=== PATIENT | female | born 1975 | race Caucasian/White ===

== ENCOUNTER 2016-05-19 15:29 | Inpatient (IN) | payer MEDICAID ==
[~2016-05-19] VITALS: Ht 152.4 cm; Wt 85.6 kg
[~2016-05-19 15:29] MED LIST: AMBIEN10 MG PO; BACLOFEN10 MG PO; CHRONULAC30 ML PO; COLACE100 MG PO; COUMADIN2.5 MG PO; CYCLOBENZAPRINE10 MG PO; DURAGESIC1 PATCH .7 TRANSDERM; FLUTICASONE PRO16 GM NASAL; GLUCOPHAGE500 MG PO; HYDROCODON-ACE1 EAC9 PO; LASIX20 MG PO; LEXAPRO10 MG PO; LEXAPRO20 MG; LEXAPRO20 MG PO; LOMOTIL TABLET1 TAB PO; MERREM 1 GM/NS 11 G1 IVPB; METHADOSE40 MG PO; NEURONTIN800 MG PO; OXYCONTIN10 MG PO; PATANOL 0.1 % OP5 ML EACH EYE; PEPCID20 MG PO; POTASSIUM20 MEQ/11 PO; PROVENTIL/2.5 MG/3 M INH; PROVENTIL/2.5 MG/3 M NEB; RISPERDAL1 MG PO; TOBI 300 M300 MG/5 M INH; VALIUM10 MG PO; XANAX XR3 MG PO; XANAX2 MG PO; ZYVOX600 MG PO
[2016-05-19 18:33] LABS: BASOPHILS 0.2 % (0.0-2.0); EOSINOPHILS 1.6 % (0-7); HEMATOCRIT 30.6 % (36.0-48.0); IMMATURE GRANULOCYTES 0.2 % (0-5); LYMPHOCYTES 30.5 % (15-50); MCH 23.1 pg (26.0-34.0); MCHC 29.4 g/dL (31.0-37.0); MCV 78.5 fL (80.0-100.0); MEAN PLATELET VOLUME 9.2 fL (7.4-10.4); MONOCYTES 9.6 % (2-11); NEUTROPHILS 57.9 % (40-80); RDW 17.5 % (11.5-14.5); WBC 5.7 10x3/uL (4.8-10.8)
[2016-05-19 18:50] LABS: ALBUMIN 3.2 g/dL (3.4-5.0); ALKALINE PHOSPHATASE 108 U/L (46-116); ALT (SGPT) 30 U/L (10-68); CALC OSMOLALITY 281 mosm/kg (275-300); CALCIUM 8.5 mg/dL (8.5-10.1); CARBON DIOXIDE 34.7 mmol/L (21.0-32.0); CHLORIDE - SERUM 101 mmol/L (98-107); CREATININE - SERUM 0.5 mg/dL (0.6-1.3); GLUCOSE 163 mg/dL (74-106); POTASSIUM - SERUM 3.7 mmol/L (3.5-5.1); PROTEIN - SERUM 8.4 g/dL (6.4-8.2); SODIUM 140 mmol/L (136-145); UREA NITROGEN 10 mg/dL (7-18); eGFR NON AFRICAN AMERICAN > 90 mL/min (90-120)
[2016-05-19 18:58] LABS: PLATELET COUNT 117 10x3/uL (130-400)
[2016-05-19 20:45] VITALS: BP 105/55
--- NOTE | 2016-05-19 20:47 | NUR ---
RECIEVED PT FROM ER VIA STRETCHER. MOTHER AT BEDSIDE. SEE ADMIT ASSESSMENT. PT ON HOME VENT, CHANGED TO OUR VENT. TRACH C-D-I. LT HAND SL, SITE WITHOUT REDNESS OR EDEMA. SR ON THE MONITOR. PT IS QUAD. DECLINES NEED FOR QUAD CALL LIGHT. COMPLAINING OF LT LEG PAIN.
[2016-05-19 20:51] VITALS: BP 105/55; Ht 152.4 cm; Wt 85.6 kg
[2016-05-19 21:00] VITALS: BP 110/62
--- NOTE | 2016-05-19 21:09 | NUR ---
MORPHINE 2MG IV GIVEN PER ORDERS. WILL CONT TO MONITOR.
[2016-05-19] MEDS ORDERED: MYCOSTATIN CREA15 GM TOPICAL (21:28)
[2016-05-19] MEDS ORDERED: RETIN-A45 GM TP (21:29)
[2016-05-19 21:30] VITALS: BP 111/62
[2016-05-19] MEDS ORDERED: ACIDOPHILUS LAC1 CAP PO (21:31)
[2016-05-19] MEDS ORDERED: FLUTICASONE PRO16 GM NASAL (21:31)
[2016-05-19] MEDS ORDERED: PROPAFENONE HC150 MG PO ×2 (21:33→23:14)
[2016-05-19] MEDS ORDERED: STOOL SOFTENER250 MG PO (21:34)
[2016-05-19] MEDS ORDERED: XANAX2 MG PO (21:37)
[2016-05-19] MEDS ORDERED: MIRALAX17 GM PO (21:38)
[2016-05-19] MEDS ORDERED: AMBIEN10 MG PO ×2 (21:39→23:09)
[2016-05-19] MEDS ORDERED: ACETAMINOPHEN325 MG PO (21:39)
[2016-05-19] MEDS ORDERED: ADVIL200 MG PO (21:43)
[2016-05-19 22:00] VITALS: BP 118/67
[2016-05-19 23:00] VITALS: BP 125/66
[2016-05-19] MEDS ORDERED: BACLOFEN20 M1 PO (23:10)
[2016-05-19] MEDS ORDERED: NEURONTIN800 MG PO (23:12)
[2016-05-19] MEDS ORDERED: NEURONTIN800 MG (23:12)
[2016-05-19] MEDS ORDERED: RISPERDAL1 MG PO (23:13)
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
[2016-05-20] VITALS (12 sets, daily range): BP systolic 104–136; BP diastolic 52–70
--- NOTE | 2016-05-20 | NUR ---
TALKED WITH PT AND MOTHER REGARDING WISHES TO GO HOME. EXPLAINED THE NEED FOR THEM TO STAY AND GET HER LEG FIXED TO NOT PROLONG FURTHER ISSUES WITH IT. BOTH VERBALIZED UNDERSTANDING. WILL CONT TO MONITOR.
--- NOTE | 2016-05-20 00:30 | NUR ---
COMPLAINING OF LT LEG PAIN. MORPHINE 2MG IV GIVEN PER ORDERS. MOTHER AT BEDSIDE.
--- NOTE | 2016-05-20 03:45 | NUR ---
WATCHING TV. DENIES ANY NEEDS AT THIS TIME. MOTHER AT BEDSIDE
[2016-05-20 04:38] LABS: BASOPHILS 0 % (0.0-2.0); EOSINOPHILS 1.6 % (0-7); HEMATOCRIT 32.2 % (36.0-48.0); HEMOGLOBIN 9.3 g/dL (12-16); IMMATURE GRANULOCYTES 0.2 % (0-5); MCH 22.4 pg (26.0-34.0); MCHC 28.9 g/dL (31.0-37.0); MCV 77.6 fL (80.0-100.0); MEAN PLATELET VOLUME 9.4 fL (7.4-10.4); MONOCYTES 8.4 % (2-11); NEUTROPHILS 51.8 % (40-80); PLATELET COUNT 138 10x3/uL (130-400); RBC 4.15 10x6/uL (4.00-5.40); RDW 17.1 % (11.5-14.5); WBC 5.1 10x3/uL (4.8-10.8)
[2016-05-20 04:44] LABS: CALC OSMOLALITY 271 mosm/kg (275-300); CALCIUM 8.6 mg/dL (8.5-10.1); CARBON DIOXIDE 33.2 mmol/L (21.0-32.0); CHLORIDE - SERUM 99 mmol/L (98-107); CREATININE - SERUM 0.4 mg/dL (0.6-1.3); POTASSIUM - SERUM 4.1 mmol/L (3.5-5.1); SODIUM 137 mmol/L (136-145); UREA NITROGEN 8 mg/dL (7-18); eGFR NON AFRICAN AMERICAN > 90 mL/min (90-120)
[2016-05-20 04:46] LABS: GLUCOSE 92 mg/dL (74-106)
--- NOTE | 2016-05-20 07:00 | NUR ---
Received report and assumed care of patient. Pt c/o pain in R hip. spoken to adriana Jernigan RN. He will be in to see patient today. Pt does not want any surgical interventions. Patients mother at bedside. Pt requests to be repositioned. Vent per trach. Ho cath from home in place, pt denies stat lock placement. See shift assessment flowsheet for all findings.
--- NOTE | 2016-05-20 07:50 | NUR ---
Morphine given per EMAR for pain of R hip. PT denies any additional needs.
--- NOTE | 2016-05-20 08:08 | NUR ---
Patient finished with breakfast, cuff reinflated per RT. Pts mother at bedside.
--- NOTE | 2016-05-20 08:33 | NUR ---
Is the patient Alert and Oriented? Yes 0 * How many steps to enter\exit or inside your home? RAMP 0 * PCP DR. NEWELL 0 * Pharmacy [facility] IN [place], [place] 0 * Preadmission Environment Home with Family 0 * ADLs Total Dependent 0 * Equipment Hospital Bed Neelam Lift Oxygen Trach Care Supplies Ventilator Wheelchair 0 * Other Equipment RAMIN HAS O2 CONCENTRATOR SUPPLIED BY [employer] SUPPLY 0 * List name and contact numbers for known caregivers / representatives who currently or will assist patient after discharge: MOTHER: LUIS MANUEL LANTIGUA [phone] 0 * Community resources currently utilized Home Health Other 0 * Please name any agencies selected above. PATENT IS SEEN BY [employer] [facility] 0 * Additional services required to return to the preadmission environment? No 0 * Can the patient safely return to the preadmission environment? Yes 0 * Has this patient been hospitalized within the prior 30 days at any hospital? No PATIENT IS A QUADRAPLEGIC. SHE LIVES AT HOME WITH HER MOTHER, LUIS MANUEL LANTIGUA. SHE IS TOTALLY DEPENDENT IN HER ADL'S. HER PCP IS DR. NEWELL. SHE GETS HER MEDS AT [facility] IN [place], [place]. PATIENT HAS A VENT, COUGH ASSIST MACHINE, SUCTION, HOSPITAL BED, O2 CONCENTRATOR, WHEELCHAIR, AND NEELAM LIFT. HER MOTHER STATES SHE GETS HER O2 FROM [facility] [employer]. PATIENT WAS ADMITTED WITH [facility]. SHE CAME IN BY AMBULANCE TO THE ED. SHE WILL NEED AMBULANCE TRANSPORTATION HOME AT DISCHARGE. CM TO FOLLOW.
--- NOTE | 2016-05-20 09:55 | NUR ---
in to see patient. Pts fractures discussed in great detail. Pt okayed to be d/c home per patients request. PT request to not have any surgical intervention. Pain medication management to be left to and his group.
--- NOTE | 2016-05-20 09:56 | NUR ---
discussed with and myself regarding patients D/C. All teams agree to d/c. No new medications added for patient as patient already is being treated with pain medications and muscle relaxers.
--- NOTE | 2016-05-20 12:06 | NUR ---
Patient was transferred to [facility] [place] and taken by EMS via home vent.
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
== END 2016-05-20 12:11 | disposition home or self-care (01) | DRG 535 ==
LOC: D.ER 15:29 → D.ICU 18:07
PROVIDERS: ADMIT Family Medicine Adult Medicine
PROC: 5A1945Z Respiratory Ventilation, 24-96 Consecutive Hours (ICD-10-PCS; principal; 2016-05-19)
DX: S72.001A Fracture of unspecified part of neck of right femur, initial encounter for closed fracture (principal); G82.50 Quadriplegia, unspecified; S82.201A Unspecified fracture of shaft of right tibia, initial encounter for closed fracture; Z99.11 Dependence on respirator [ventilator] status; J96.10 Chronic respiratory failure, unspecified whether with hypoxia or hypercapnia; X58.XXXA Exposure to other specified factors, initial encounter; G89.4 Chronic pain syndrome; K21.9 Gastro-esophageal reflux disease without esophagitis; K59.09 Other constipation; N31.9 Neuromuscular dysfunction of bladder, unspecified; E11.9 Type 2 diabetes mellitus without complications; F32.9 Major depressive disorder, single episode, unspecified; D50.9 Iron deficiency anemia, unspecified